=== PATIENT | female | born 1970 | race Caucasian/White ===

== ENCOUNTER 2020-05-02 07:36 | Emergency (ER) | payer SELFPAY ==
[2020-05-02 07:39] VITALS: BP 161/106; PULSE 80; RESP 16; TEMP 36.8; O2SAT 100; BMI 33.2
[2020-05-02 07:43] VITALS: BP 161/106; PULSE 80; RESP 16; TEMP 36.8; O2SAT 100
--- NOTE | 2020-05-02 07:56 | ED.DCSUM_ITS ---
History of Present Illness Chief Complaint: Dental Informant: Patient Onset: Days Context: Gradual Onset Narrative: Patient is a 49-year-old female denies any medical history presenting with worsening dental pain as well as fever. Patient states she had a temperature 100.0 on Friday, 4 days ago. Since then she is intermittent headache and fever and feeling hot and cold. The following day she had nausea and diarrhea. She is been taking Tylenol for her fever. She states at 330 this morning she had a fever of 101. However she also notes that she has had increased pain and swelling of her right lower jaw and it seems to be coming from a broken molar that she has. Patient states she broke a tooth last year. She does not currently have a dentist that she moved here from [place]. Patient she had a mild cough this morning but attributes that to her tobacco use. She was sent home from work because of her fever was told she has to be tested for coronavirus. Patient is very concerned about this aspect. She would like referral to a dentist in the area. Patient denies any shortness of breath or difficulty breathing. She is no longer having any GI symptoms. No other complaints at this time. Past Medical History - Allergies and Home Meds Allergies/Adverse Reactions: Allergies No Known Allergies Allergy (Verified 05/02/20 07:37) Primary Care Physician: Care Physician,No Primary [Primary Care Provider] - Past Medical History: None Surgical History: noncontributory Smoking Status: Current every day smoker Alcohol: None Drugs: None Review of Systems General: Reports: Chills, Fever, Malaise. Denies: Sweats Eyes: Denies: Visual changes - bilaterally, Diplopia ENT: Reports: - - Right lower dental pain. Denies: Rhinorrhea, Sore throat Cardiovascular: Denies: Chest pain, Palpitations Respiratory: Reports: Cough. Denies: Dyspnea, Dyspnea on exertion Gastrointestinal: Reports: Nausea - Resolved, Diarrhea - Resolved. Denies: Abdominal pain, Vomiting, Melena, Hematochezia Genitourinary: Denies: Dysuria, Hematuria, Frequency Musculoskeletal: Denies: Back pain, Extremity Pain Skin: Denies: Rash, Wounds Neurological: Denies: Headache, Weakness, Numbness Physical Exam Vital Signs/Narrative: Vital Signs Temp Pulse Resp BP Pulse Ox 05/02/20 07:43 98.2 F 80 16 161/106 H 100 05/02/20 07:39 98.2 F 80 16 161/106 H 100 Inital Vital Signs reviewed: Yes General: Well nourished, Well developed, No Acute Distress, - - Tearful during exam Head: Normocephalic, Atraumatic Eyes: Perrl, EOMI ENT: Moist mucous membranes, No rhinorrhea, TM's clear, - - Patient has multiple missing teeth. Her right back molar does have a crack and is tender to palpation. There is no associated abscess appreciated. The tooth is not loose. Sublingual mucosa is soft. Oropharynx appears normal.. Negative for: Nasal congestion, Sinus tenderness Neck: Supple, Nontender, No lymphadenopathy Cardiovascular: Regular rate, Regular rhythm, No murmurs Respiratory: No distress, CTA bilaterally, Chest nontender Abdomen: Soft, Nontender, Nondistended, Normal bowel sounds Back: Nontender, Normal Inspection Extremities: Nontender, No edema Skin: Normal color, No rash Neurological: Alert, Oriented x3, Cranial nerves II-XII grossly intact, Normal Strength, Normal Sensation Psychological: Normal affect, Normal Mood, Tearful Diagnostic/Tx/Re-eval - Medical Decision Making Patient is evaluated with fever as well as dental pain. She initially started with fever and general malaise/possible viral symptoms. Some progressed into dental pain. Patient be covered for dental abscess with Pen-Vee K and given Motrin for pain control. She is given dental follow-up. In light of the current pandemic, patient will also be tested for coronavirus. Patient is counseled she has to act as if she is positive until her test results return. She is given return precautions. She will continue to alternate Tylenol and Motrin for fever and pain control. Patient declines any nausea medicine in the ER states she is no longer feeling nauseous. Patient is counseled on signs and symptoms requiring return to the emergency room. Patient verbalizes agreement and understand this plan. Patient discharged home in stable and improved condition. ED Disposition - Plan for ED Patient: Disposition: Home or Assisted Living Diagnosis: Dentalgia, Suspected COVID-19 virus infection Instructions: ED Tooth Pain, ED FUO Adult Prescriptions: Ibuprofen [Motrin] 600 mg PO Q6H PRN PRN #20 tab PRN Reason: Pain Score 1-10/10 Transmission Status: Received by [id number] Penicillin V Potassium 500 mg PO 4X/DAY #40 tab Transmission Status: Received by [facility] [id number] Referrals: Care Physician,No Primary [Primary Care Provider] - Additional Instructions: Your tested for coronavirus today given your symptoms over the past 3 to 4 days. The test will results in approximately 5 days. In the meantime, treat yourself as if you do have coronavirus by staying home and quarantining yourself. Return to the emergency room if you have worsening symptoms. Please follow-up with your dentist for your tooth.
[2020-05-02] MEDS: Ibuprofen 600 MG Tablet PO (08:25)
[2020-05-02] MEDS: Penicillin Vk 250 MG Tablet 500 MG PO (08:25)
== END 2020-05-02 08:38 | disposition home or self-care (01) ==
LOC: ED 08:38
PROVIDERS: Emergency Provider Emergency Medicine
DX: K08.89 Other specified disorders of teeth and supporting structures (principal); R50.9 Fever, unspecified; R51 Headache; Z20.828 Contact with and (suspected) exposure to other viral communicable diseases; F17.200 Nicotine dependence, unspecified, uncomplicated
CPT/HCPCS: 87635; 99283; U0003

== ENCOUNTER 2021-01-01 01:46 | Emergency (ER) | payer BC, SELFPAY ==
[2021-01-01 01:46] VITALS: BP 148/91; PULSE 107; RESP 18; TEMP 36.4; O2SAT 100; BMI 31.2
--- NOTE | 2021-01-01 02:08 | ED.VIS.BACK ---
HPI History of Present Illness Chief Complaint: Back Informant: patient Narrative Narrative: 50-year-old female states that yesterday she was walking to work when she twisted her ankle. She noticed she started to have some low back pain that progressively has gotten worse. Today is significantly more worse when she went to go up a step. She notes that she was diagnosed with rheumatoid arthritis about 10 years ago. She states she is not treated for it. Patient denies any prior injuries or diagnoses. She notes no radicular symptoms. No fevers. PFSH PFS Medical History (Updated 01/01/21 @ 02:[address] Nathan Salazar DO) delivery delivered Rheumatoid arthritis Home Medications ketorolac 10 mg PO TID PRN 5 Days #15 tab 01/01/21 [Rx Last Taken Unknown] Allergy/AdvReac Type Severity Reaction Status Date / Time No Known Allergies Allergy Verified 01/01/21 01:48 Surgical History H/O rotator cuff surgery Hx of wisdom tooth extraction Social History (Updated 01/01/21 @ 02:[address] Nathan Salazar DO) Smoking Status: Current every day smoker tobacco type: cigarettes substance use type: does not use ROS ROS ED Constitutional Constitutional ED: Denies chills or weight loss Eyes Eyes: Denies change in vision or diplopia ENT ENT ED: Denies ear pain, rhinorrhea or sore throat Cardiovascular Cardiovascular: Denies chest pain, orthopnea, palpitations or racing heartbeat Respiratory/Chest Respiratory/Chest: Denies cough, dyspnea or orthopnea Gastrointestinal Gastrointestinal: Denies abdominal pain, diarrhea, nausea or vomiting Genitourinary Genitourinary ED: Denies dysuria, hematuria or urinary frequency Musculoskeletal Musculoskeletal: Reports arthralgias and back pain; Denies myalgias Integumentary Denies abscess or rash Neurologic Neurologic: Denies headache(s) or weakness Psychiatric Psychiatric: Denies anxiety, depression, suicidal ideation or suicidal thoughts Endocrine Endocrinology: Denies polydipsia, polyphagia or polyuria Allergic/Immunologic Allergic/Immunologic ED: Denies mouth swelling, tongue swelling or urticaria EXAM Physical Exam Const Vital Signs: 01/01/21 01:46 Temperature 97.6 F L Temperature Source Temporal Pulse Rate 107 H Respiratory Rate 18 Blood Pressure 148/91 H Blood Pressure Mean 110 Pulse Ox 100 Positive well nourished and well developed General Appearance ED: well developed HEENT Reports normocephalic, head/scalp atraumatic and moist mucous membranes Eyes PERRL and EOMs intact bilaterally Neck no lymphadenopathy, supple and no JVD Resp normal respiratory effort and clear to auscultation bilaterally Cardio regular rate, regular rhythm and no murmurs GI normal to inspection, nondistended, normoactive bowel sounds and non-tender Palpation: soft Back/Spine no CVA tenderness and normal ROM Back/Spine Narrative: Patient has tenderness to palpation in the lower right lumbar paraspinal musculature. She also has some mild tenderness into the right buttock along the piriformis area. Extremity normal to inspection General Extremety ED: Negative for edema General Extremity: Negative for edema Neuro oriented x3 and CN's II-XII intact bilaterally Sensorium / Orientation: alert Motor Exam: strength 5/5 throughout Psych mental status grossly normal Mood & Affect: Negative for depressed or tearful Skin no rashes or lesions noted and no wounds MDM MDM MDM Narrative Medical decision making narrative: My interpretation of the plain films of the lumbar spine is no acute process. Patient received a dose of Toradol. Patient has a history of opiate addiction is not want any opiates. She does not want benzodiazepines or muscle relaxants. She would prefer to stick with home remedies of heat anti-inflammatories. She would like to be referred to somebody for primary care if she would like to start seeing 1 for preventative medicine. Radiography Diagnostic Testing: Radiology Impression Lumbar Spine X-Ray 01/01/21 02:22 IMPRESSION: No acute findings in the lumbar spine. Electronically Signed: Aaron Wong MD at 2:37 EDT , Service support , Discharge Plan Triage Chief Complaint: Back ED Provider: Nathan Salazar Dx/Rx/DC Orders Clinical Impression: Acute lumbar myofascial strain Instructions: ED Back Sprain/Strain Prescriptions: New ketorolac 10 mg tablet 10 mg PO TID PRN (Reason: pain) 5 Days Qty: 15 RF: 0 Primary Care Provider: Care Physician,No Primary Referrals: Jarocho Bell MD [STAFF PHYSICIAN] - As Needed (as needed for primary care) Care Physician,No Primary [Primary Care Provider] - Activity Restrictions/Additional Instructions: Please return if worsening or concerns. Disposition Disposition: Home, self care
--- NOTE | 2021-01-01 02:22 | RAD_ITS ---
STUDY: X-RAY - LUMBAR SPINE REASON FOR EXAM: Female, 50 years old. lower back pain starting today, no known injury. TECHNIQUE: 3 view(s) of the lumbar spine were obtained. COMPARISON: None FINDINGS: Normal lumbar lordosis. There is no substantial scoliosis. There is a normal alignment of the vertebrae. Normal vertebral bodies and endplates. Normal disc space heights. The soft tissue structures are unremarkable. RAD/Lumbar Spine 2 or 3 Views IMPRESSION: No acute findings in the lumbar spine. Electronically Signed: Aaron Wong MD at 2:37 EDT , Service support ,
[2021-01-01] MEDS: Ketorolac 60 MG/2 ML Vial IM (02:30)
[2021-01-01 02:51] VITALS: BP 148/91; PULSE 107; RESP 18; TEMP 36.4; O2SAT 100
== END 2021-01-01 02:53 | disposition home or self-care (01) ==
PROVIDERS: Emergency Provider Emergency Medicine
DX: S39.012A Strain of muscle, fascia and tendon of lower back, initial encounter (principal); X50.1XXA Overexertion from prolonged static or awkward postures, initial encounter; Y93.01 Activity, walking, marching and hiking; Y92.9 Unspecified place or not applicable; M06.9 Rheumatoid arthritis, unspecified; F17.210 Nicotine dependence, cigarettes, uncomplicated
CPT/HCPCS: 72100; 96372; 99282